=== PATIENT | male | born 1985 | race Caucasian/White ===

== ENCOUNTER 2016-07-09 09:43 | Observation (INO) | payer BC ==
--- NOTE | ~2016-07-09 | CN ---
Consultation Report [facility] [address] [place]. [address] NAME: SAMMY DIAZ : 81 STATUS : ADM Hal PAT#: [id number] AGE: 30 ADM/REG DATE : 07/09/16 MR#: [id number] REPORT SERV DATE: 07/10/16 DICTATED BY: ERNESTO SAHNI DATE: 07/09/16 REPORT STATUS : Draft TRANSCRIBED BY: MODKitty DATE: 07/09/16 DATE OF CONSULTATION: CHIEF COMPLAINT: Bleeding. HISTORY OF PRESENT ILLNESS: Mr. Diaz is a 30-year-old, who on 06/21/2016 underwent removal of all five wisdom teeth. He had bleeding the following day requiring evaluation and suturing in the emergency department. He returned about a week later and required intervention by Dr. Gwendolyn Delatorre. His bleeding has persisted and today he went to the operating room for hematoma evacuation. He does not have a significant bleeding history previously. He does not report ecchymoses. He did have a septoplasty and uvula surgery for sleep apnea and had several days' of bleeding, but he describes that it is well controlled. He does not take aspirin or aspirin products. He did take low-dose vitamin E and fish oil prior to his wisdom teeth extraction. He has taken ibuprofen about 800 mg daily since the surgery. His family history is remarkable for easy bleeding in his maternal grandfather. There are no details available. He just learned of this on questioning his mother today. PAST MEDICAL HISTORY: Positive for some possible elevated blood pressure at times. REVIEW OF SYSTEMS: Most notable for headache that he has had off and on for about a year. PAST SURGICAL HISTORY: Remarkable for the uvuloplasty. SOCIAL HISTORY: He does not use alcohol or tobacco. PHYSICAL EXAMINATION: GENERAL: Reveals a well-developed gentleman, in no distress. There is mouth bleeding. VITAL SIGNS: 97.9, 132/58, 93, respirations 18. HEENT: The eye exam shows that the lids and conjunctivae are without lesions. The pupils are equal, round. Mouth shows bleeding posteriorly. He is suctioning this. SKIN: Without rash, nodules, or ecchymoses. NECK: Supple. There is no mass. Lymph node survey is without adenopathy. CARDIOVASCULAR: Reveals regular rate and rhythm without murmur. PULMONARY: Lungs clear to auscultation. GI: The abdomen is soft. There is no hepatosplenomegaly. DATA REVIEW: A CMP is normal. A CBC shows a normal white blood cell count, hemoglobin was 11.5, platelets are 271,000, a PTT is 37.8, and INR 1.2. ASSESSMENT: Bleeding following tooth extraction. This is somewhat suspicious for von Willebrand's disease. I will check these assays as well as PFA. I will repeat the PT and Consultation Report [place] [address] [place] [address] NAME: SAMMY DIAZ : 81 STATUS : ADM Hal PAT#: [id number] AGE: 30 ADM/REG DATE : 07/09/16 MR#: [id number] REPORT SERV DATE: 07/10/16 DICTATED BY: ERNESTO SAHNI DATE: 07/09/16 REPORT STATUS : Draft TRANSCRIBED BY: MODL DATE: 07/09/16 PTT in the morning. I will follow along closely with you. At this time, I would recommend supportive care as is being done for the bleeding. PEPE/DARÍO Ernesto Sahni M.D. / [id number] CC: Gwendolyn Delatorre D.D.S., M.D.
--- NOTE | ~2016-07-09 | OP ---
[facility] [address]. [address] NAME: SAMMY DIAZ : 81 STATUS : DIS Hal PAT#: [id number] AGE: 30 ADM/REG DATE : 07/09/16 MR#: [id number] REPORT SERV DATE: 07/10/16 DICTATED BY: GWENDOLYN SCHMITT DATE: 07/10/16 REPORT STATUS : Draft TRANSCRIBED BY: MODKitty DATE: 07/10/16 DATE OF PROCEDURE: 07/09/2016 PRIMARY SURGEON: Gwendolyn Schmitt D.D.S., M.D. BABY COUNSELOR: Martina Schmitt. INDICATIONS FOR PROCEDURE: This is a 30-year-old male, who is status post extraction of his wisdom teeth on June 22, 2016. The patient presented with two episodes of hemorrhaging from his right mandibular previous surgical site. [facility] morning of the with another episode of hemorrhage of the right mandibular region and swelling of the left mandibular region. Examination of the patient revealed some active hemorrhage of the right extraction site and a large hematoma of the left mandibular region. It was determined that the patient should be admitted to the hospital where blood tests and labs can be drawn in addition to evacuation of hematoma and control of hemorrhage to be performed in the main operating room under general endotracheal tube anesthesia. The risks and benefits of the procedure were discussed with the patient. The risks included, but were not limited to, further bleeding, infection, and paresthesias. The patient expressed an understanding and wished to proceed with the planned procedure. PREOPERATIVE DIAGNOSIS: Postoperative hemorrhage and postoperative hematoma. POSTOPERATIVE DIAGNOSIS: Postoperative hemorrhage and postoperative hematoma. OPERATION PERFORMED: Hematoma evacuation and hemorrhage control, bilateral mandibular regions. ANESTHESIA: General endotracheal tube anesthesia. DRAINS: None. ESTIMATED BLOOD LOSS: 25 mL. IV FLUIDS: Total of 200 mL of lactated Ringer's. SPECIMENS: None. FINDINGS: Consistent with diagnosis above. Mild hemorrhaging was noted in the bilateral mandibular regions. COMPLICATIONS: None. PROCEDURE IN DETAIL: After adequate informed consent, the patient was taken to the main operating room and placed in a semi-Chi position on the operating room table. After an uneventful induction of general endotracheal tube anesthesia, the patient was prepped and draped in the standard sterile fashion for oral maxillofacial surgical procedure. Local [facility] [address] [place]. [address] NAME: SAMMY DIAZ : 81 STATUS : DIS Hal PAT#: [id number] AGE: 30 ADM/REG DATE : 07/09/16 MR#: [id number] REPORT SERV DATE: 07/10/16 DICTATED BY: GWENDOLYN SCHMITT DATE: 07/10/16 REPORT STATUS : Draft TRANSCRIBED BY: DARÍO DATE: 07/10/16 anesthetic consisting of 2% lidocaine with 1:100,000 epinephrine was injected in series of infiltration blocks to the bilateral mandibular regions for a total of 8 mL. This was followed by the placement of 0.5% Marcaine with 1:200,000 epinephrine injected in a similar fashion for a total of 4 mL. Attention was directed to the right mandibular region where a gauze packing had been placed preoperatively and the packing was removed. The patient was noted to have some mild hemorrhage from the hematoma extraction site. The hematoma was removed using a series of curettes down to the alveolar bone and extraction site. The site was copiously irrigated using normal saline. He was noted to have some mild oozing in soft tissue and bone. Of note, there were no obvious arterial bleeds. The soft tissue hemorrhage was controlled using Bovie electrocautery, as well as some mild fissures within the extraction site of #32. The site was copiously irrigated using normal saline. At this time, Surgiflo was mixed with thrombin and was placed into the extraction site. The site was then closed with 3-0 Vicryl suture in an interrupted fashion. There was no ectopy noted. Attention was directed to the left mandibular region where the procedure was carried out in a similar fashion, as well as placement of Surgiflo in thrombin with closure using 3- 0 Vicryl sutures in an interrupted fashion. Of note, prior to closure of the wounds, the sponge, needle, and instrument counts were noted to be correct. The patient was then turned over to anesthesia. The patient was awakened from anesthesia without complications, and was then transferred to the PACU, awake and in good condition. INES/DARÍO Gwendolyn Schmitt D.D.S., M.D. / [id number] CC: Gwendolyn Schmitt D.D.S., M.D.
[2016-07-09 10:46] LABS: BASOPHILS 0.3 %; BASOPHILS ABSOLUTE 0.02 10/3/uL (0.0-0.16); EOSINOPHILS 1.7 %; EOSINOPHILS ABSOLUTE 0.13 10/3/uL (0.0-0.53); IMMATURE GRANULOCYTES 0.3 %; IMMATURE GRANULOCYTES ABSOLUTE 0.02 10/3/uL (0.0-0.11); LYMPHOCYTES 15.2 %; LYMPHOCYTES ABSOLUTE 1.14 10/3/uL (0.67-4.30); MEAN CORPUS HGB CONC 35.2 g/dL (32.0-36.0); MEAN CORPUSCULAR HEMOGLOB 31.9 pg (26.0-34.0); MEAN CORPUSCULAR VOLUME 90.8 fL (80-100); MEAN PLATELET VOLUME 8.9 fL (9.2-13.0); MONOCYTES 5.6 %; MONOCYTES ABSOLUTE 0.42 10/3/uL (0.21-1.20); NEUTROPHILS 76.9 %; NEUTROPHILS ABSOLUTE 5.75 10/3/uL (2.02-8.40); WHITE BLOOD CELLS 7.5 10/3/uL (4.5-10.5)
[2016-07-09 10:47] LABS: HEMATOCRIT 32.7 % (40.0-51.0); HEMOGLOBIN 11.5 g/dL (13.6-17.8); MANUAL DIFF NO %; PLATELET COUNT 271 10/3/uL (150-400)
[2016-07-09 10:53] LABS: PARTIAL THROMBO TIME 37.6 SEC (22.5-37.2)
[2016-07-09 10:54] LABS: INTERNATIONAL NORMAL RATI 1.2 UNITS (-); PROTIME (NOT ORD) 14.9 SEC (12.0-14.5)
[2016-07-09 11:02] LABS: A/G RATIO 1.4 (0.7-1.9); ALBUMIN 4.1 G/DL (3.5-5.0); BUN (BLOOD UREA NITROGEN) 17 MG/DL (6-23); CALCIUM, SERUM 8.8 MG/DL (8.5-10.4); CHLORIDE, SERUM 107 MMOL/L (96-112); CO2 (CARBON DIOXIDE) 27 MMOL/L (24-34); CREATININE 1.14 MG/DL (0.70-1.30); GFR AFRICAN AMERICAN 98 ML/MIN (>=60); GFR NON AFRICAN AMERICAN 85 ML/MIN (>=60); GLOBULIN 2.9 G/DL (2.5-4.1); POTASSIUM, SERUM 3.8 MMOL/L (3.5-5.3); SGOT(AST) 7 U/L (5-40); SGPT(ALT) 15 U/L (5-65); SODIUM, SERUM 143 MMOL/L (135-148); TOTAL BILIRUBIN 0.9 MG/DL (0-1.2)
[2016-07-09 11:05] LABS: ALKALINE PHOSPHATASE 50 U/L (45-117); GLUCOSE, SERUM 94 MG/DL (60-99)
[2016-07-09 20:38] LABS: PFA (COL/EPI) 110 SEC (72-180)
[2016-07-09 22:38] LABS: FACTOR VIII ASSAY (ACTIVITY) 49 %ACTIV (50-150)
[2016-07-10 07:18] LABS: BASOPHILS 0.1 %; BASOPHILS ABSOLUTE 0.01 10/3/uL (0.0-0.16); EOSINOPHILS 0.3 %; EOSINOPHILS ABSOLUTE 0.03 10/3/uL (0.0-0.53); HEMATOCRIT 31.5 % (40.0-51.0); HEMOGLOBIN 11.1 g/dL (13.6-17.8); IMMATURE GRANULOCYTES 0.2 %; IMMATURE GRANULOCYTES ABSOLUTE 0.02 10/3/uL (0.0-0.11); LYMPHOCYTES 12.6 %; LYMPHOCYTES ABSOLUTE 1.16 10/3/uL (0.67-4.30); MEAN CORPUS HGB CONC 35.2 g/dL (32.0-36.0); MEAN CORPUSCULAR VOLUME 90.8 fL (80-100); MEAN PLATELET VOLUME 8.7 fL (9.2-13.0); MONOCYTES 8.5 %; MONOCYTES ABSOLUTE 0.78 10/3/uL (0.21-1.20); NEUTROPHILS 78.3 %; NEUTROPHILS ABSOLUTE 7.18 10/3/uL (2.02-8.40); PLATELET COUNT 248 10/3/uL (150-400); RED CELL COUNT 3.47 10/6/uL (4.7-6.1); WHITE BLOOD CELLS 9.2 10/3/uL (4.5-10.5)
[2016-07-10 07:20] LABS: MANUAL DIFF NO %
[2016-07-10 07:28] LABS: INTERNATIONAL NORMAL RATI 1.2 UNITS (-); PARTIAL THROMBO TIME 37.7 SEC (22.5-37.2); PROTIME (NOT ORD) 15.5 SEC (12.0-14.5)
[2016-07-10] MEDS ORDERED: PCET PO (09:53)
[2016-07-11 21:24] LABS: VWF ACTIVITY (RISTOCETIN COF) 61 % (>40)
[2016-07-17 13:23] LABS: VON WILLEBRAND FACTOR MULTI Normal (NORM)
== END 2016-07-10 10:16 | disposition home or self-care (01) ==
LOC: CDU2 09:43 → SDC/OF 11:13 → PACU 14:00 → 2SO 15:27
PROVIDERS: Dentist Oral and Maxillofacial Surgery; Internal Medicine Hematology & Oncology
PROC: 0N9T0ZZ Drainage of Right Mandible, Open Approach (ICD-10-PCS; 2016-07-09)
PROC: 0N9V0ZZ Drainage of Left Mandible, Open Approach (ICD-10-PCS; principal; 2016-07-09 11:45)
DX: K91.841 Postprocedural hemorrhage of a digestive system organ or structure following other procedure (principal); K91.871 Postprocedural hematoma of a digestive system organ or structure following other procedure; G47.33 Obstructive sleep apnea (adult) (pediatric); D64.9 Anemia, unspecified; Z98.890 Other specified postprocedural states
CPT/HCPCS: 80053; 85025; 85240; 85245; 85247; 85576; 85610; 85730; 96374; 96376; A9270-GY; G0378; J0295; J0330; J2250; J2405; J3010